=== PATIENT | female | born 1990 | race American Indian/Alaskan Native ===

== ENCOUNTER 2018-07-11 18:40 | Emergency (ER) | payer BC, MEDICAID ==
--- NOTE | 2018-07-11 19:31 | Emergency Department Report ---
ED Female HPI - General Chief complaint: Urogenital-Female Stated complaint: PELVIC PAIN BLEEDING Time Seen by Provider: 07/11/18 19:24 Source: patient Mode of arrival: Wheelchair Limitations: No Limitations - History of Present Illness Initial comments: 28-year-old female with past medical history of recurrent urinary tract infection present. Emergency department complaining of increased frequency, increased urgency, hematuria with with clots and suprapubic pain. Reports that she's been having some issues with recurrent urinary tract infections since April 2017 has been seen at [facility], as well as some of the facilities, but she was prescribed an unknown anabiotic was states does improve her symptoms but is not resolved. She also reports having had a hysterectomy back in 2009, however, states that she had a miscarriage in May 2017. MD Complaint: vaginal discharge, dysuria Location: suprapubic Radiation: non-radiating Severity: mild Quality: cramping, dull Consistency: constant Improves with: none Worsens with: urination Are you Now?: No Associated Symptoms: vaginal bleeding, dysuria, hematuria (increased urgency decreased frequency decreased production). denies: nausea/vomiting, shortness of breath, syncope, weakness - Related Data Previous Rx's Medication Instructions Recorded Last Taken Type Cyclobenzaprine [Flexeril 10mg] 10 mg PO TID PRN #10 tablet 07/28/14 Unknown Rx Fluconazole 150 mg PO ONCE #1 tablet 07/28/14 Unknown Rx metroNIDAZOLE 0.75%(NF) [Metrogel 1 applicatio TP BID #1 tube 07/28/14 Unknown Rx 0.75%] traMADol [Ultram 50 MG tab] 50 mg PO Q6HR PRN #10 tablet 07/28/14 Unknown Rx Ondansetron [Zofran ODT TAB] 8 mg PO Q12HR #14 tab.rapdis 07/11/18 Unknown Rx Phenazopyridine [Pyridium] 200 mg PO BID PRN #10 tab 07/11/18 Unknown Rx Sulfamethoxazole/Trimethoprim 1 each PO BID #20 tablet 07/11/18 Unknown Rx [Bactrim DS TAB] Allergies Allergy/AdvReac Type Severity Reaction Status Date / Time No Known Allergies Allergy Verified 07/11/18 22:27 ED Review of Systems ROS: Stated complaint: PELVIC PAIN BLEEDING Other details as noted in HPI Constitutional: denies: chills, fever Eyes: denies: eye pain, eye discharge, vision change ENT: denies: ear pain, throat pain Respiratory: denies: cough, shortness of breath, wheezing Cardiovascular: denies: chest pain, palpitations Endocrine: no symptoms reported Gastrointestinal: denies: abdominal pain, nausea, diarrhea Genitourinary: urgency, dysuria. denies: discharge Musculoskeletal: denies: back pain, joint swelling, arthralgia Skin: denies: rash, lesions Neurological: denies: headache, weakness, paresthesias Psychiatric: denies: anxiety, depression Hematological/Lymphatic: denies: easy bleeding, easy bruising ED Past Medical Hx - Past Medical History Previous Medical History?: Yes Additional medical history: recurrent UTI - Surgical History Additional Surgical History: x1,partial hysterectomy 2009 - Social History Smoking Status: Never Smoker Substance Use Type: None - Medications Home Medications: Home Medications Medication Instructions Recorded Confirmed Last Taken Type Cyclobenzaprine [Flexeril 10mg] 10 mg PO TID PRN #10 tablet 07/28/14 Unknown Rx Fluconazole 150 mg PO ONCE #1 tablet 07/28/14 Unknown Rx metroNIDAZOLE 0.75%(NF) [Metrogel 1 applicatio TP BID #1 tube 07/28/14 Unknown Rx 0.75%] traMADol [Ultram 50 MG tab] 50 mg PO Q6HR PRN #10 tablet 07/28/14 Unknown Rx Ondansetron [Zofran ODT TAB] 8 mg PO Q12HR #14 tab.rapdis 07/11/18 Unknown Rx Phenazopyridine [Pyridium] 200 mg PO BID PRN #10 tab 07/11/18 Unknown Rx Sulfamethoxazole/Trimethoprim 1 each PO BID #20 tablet 07/11/18 Unknown Rx [Bactrim DS TAB] ED Physical Exam - General Limitations: No Limitations General appearance: alert, in no apparent distress - Head Head exam: Present: atraumatic, normocephalic - Eye Eye exam: Present: normal appearance, PERRL, EOMI - ENT ENT exam: Present: mucous membranes moist - Neck Neck exam: Present: normal inspection - Respiratory Respiratory exam: Present: normal lung sounds bilaterally. Absent: respiratory distress, wheezes - Cardiovascular Cardiovascular Exam: Present: regular rate, normal rhythm. Absent: systolic murmur, diastolic murmur, rubs, gallop - GI/Abdominal GI/Abdominal exam: Present: soft, tenderness (2 suprapubic region. No CVA tenderness), normal bowel sounds. Absent: guarding, rebound, hyperactive bowel sounds, hypoactive bowel sounds, organomegaly, bruit, pulsatile mass - Extremities Exam Extremities exam: Present: normal inspection - Back Exam Back exam: Present: normal inspection - Neurological Exam Neurological exam: Present: alert, oriented X3 - Psychiatric Psychiatric exam: Present: normal affect, normal mood - Skin Skin exam: Present: warm, dry, intact, normal color. Absent: rash ED Course Vital Signs 07/11/18 07/11/18 19:03 20:42 Temperature 98.1 F Pulse Rate 92 H Respiratory 20 16 Rate Blood Pressure 156/98 O2 Sat by Pulse 100 Oximetry ED Medical Decision Making - Medical Decision Making Discussion patient with findings of the ultrasound as well as laboratory data. Also dispersing for follow-up SHANK ARCHER appointment provider for these recurrent infections. Advised patient is important she follows up with her cultures to determine all with this treatment courses Critical care attestation.: If time is entered above; I have spent that time in minutes in the direct care of this critically ill patient, excluding procedure time. ED Disposition Clinical Impression: Urinary tract infection with hematuria Disposition: - TO HOME OR SELFCARE Is pt being admited?: No Does the pt Need Aspirin: No Condition: Stable Instructions: Urinary Tract Infection in Women (ED), Phenazopyridine (By mouth), Dysuria (ED) Referrals: PRIMARY CARE [Primary Care Provider] - 3-5 Days [facility] [Provider Group] - 3-5 Days
[2018-07-11 20:09] LABS: Bacteria,Urine 1+ /HPF (Negative); Bilirubin,Urine NEG (Negative); Blood,Urine LG (Negative); Color,Urine Amber (Yellow)
[2018-07-11 20:10] LABS: WBC,Urine > 182.0 /HPF (0.0-6.0)
[2018-07-11] MEDS ORDERED: MORPHINE IM STA (20:31)
[2018-07-11] MEDS ORDERED: LEVAQUIN PO STA (21:01)
[2018-07-11] MEDS ORDERED: ZOFRAN ODT PO ONE (22:17)
[2018-07-11] MEDS ORDERED: ZOFRAN ODT ONE (22:19)
--- NOTE | 2018-07-11 22:47 | Ultrasound Report ---
FINAL REPORT EXAM: US PELVIC COMPLETE HISTORY: bleeding and pelvic pain TECHNIQUE: Ultrasound pelvis transabdominal PRIORS: None. FINDINGS: The uterus is not identified. Patient has history of hysterectomy A right ovary is identified it measures 2.5 x 1.6 x 1.5 centimeters no abnormal mass or cyst identifi ed The left ovary is identified it measures 4.0 x 1.1 x 1.7 centimeters. No abnormal mass or cyst identi fied No free fluid is identified in the visualized portion of the pelvis IMPRESSION: Status post hysterectomy Normal sonographic appearance of the ovaries
[2018-07-12 00:58] VITALS: BP 139/78
== END 2018-07-11 23:55 | disposition home or self-care (01) ==
LOC: ED 18:40
DX: N30.01 Acute cystitis with hematuria (principal); Z90.710 Acquired absence of both cervix and uterus
CPT/HCPCS: 76856; 81001; 96372; 99284; J2270; Q0162